=== PATIENT | female | born 1940 | race Caucasian/White ===

== ENCOUNTER → 2017-12-21 | Outpatient (CLI) | payer MEDICARE ==
[~2017-12-21] MED LIST: CALCIUM; CALCIUM PO; CHOL500050 PO; DENO60DI IM; LISI-170 PO; MAGNESIUM PO; MULT-516 PO; MULT-672 PO; POTA20TA89 PO; TAMO20TA PO
[2017-12-21 11:12] LABS: BASOPHILS # (AUTO) 0.02 x10^3/uL (0-0.1); BASOPHILS % (AUTO) 0 % (0-1); EOSINOPHILS # (AUTO) 0.15 x10^3/uL (0-0.4); EOSINOPHILS % (AUTO) 2 % (1-7); LYMPHOCYTES # (AUTO) 1.44 x10^3/uL (1-3.4); LYMPHOCYTES % (AUTO) 24 % (22-44); MD NO; MEAN CORPUSCULAR HEMOGLOBIN 27.1 pg (27.0-34.8); MEAN CORPUSCULAR HGB CONC 32.3 g/dL (32.4-35.8); MEAN CORPUSCULAR VOLUME 83.9 fL (80-100); MEAN PLATELET VOLUME 8.7 fL (7.4-10.4); MONOCYTES # (AUTO) 0.37 x10^3/uL (0.2-0.8); MONOCYTES % (AUTO) 6 % (2-9); NEUTROPHILS # (AUTO) 4.14 x10^3/uL (1.8-6.8); NEUTROPHILS % (AUTO) 68 % (42-75); PLATELET COUNT 153 x10^3/uL (130-400); RED BLOOD COUNT 4.87 x10^6/uL (3.82-5.3); RED CELL DISTRIBUTION WIDTH 14.6 % (9.6-15.2)
[2017-12-21 11:24] LABS: ANION GAP 8 mmol/L (5-15); CALCIUM 8.4 mg/dL (8.5-10.1); CHLORIDE 108 mmol/L (98-107)
[2017-12-21 11:25] LABS: CREATININE 0.95 mg/dL (0.55-1.02)
== END | disposition home or self-care (01) ==
LOC: STAR 10:18
PROVIDERS: ATTEND Internal Medicine Cardiovascular Disease
DX: Z01.818 Encounter for other preprocedural examination (principal); I10 Essential (primary) hypertension; I35.0 Nonrheumatic aortic (valve) stenosis
CPT/HCPCS: 36415; 80048; 85025

== ENCOUNTER 2017-12-27 11:10 | Day surgery (SDC) | payer MEDICARE ==
[~2017-12-27] VITALS: Ht 166.4 cm; Wt 75.0 kg
[2017-12-27] MEDS ORDERED: MIDAZOLAM 1 MG/ML, 2ML ONE (12:22)
[2017-12-27] MEDS ORDERED: VERAPAMIL 2.5 MG/ML, 2ML ONE (12:22)
[2017-12-27] MEDS ORDERED: LIDOCAINE-MPF 2%, 2ML ONE (12:22)
[2017-12-27] MEDS ORDERED: FENTANYL PF 100 MCG/2ML ONE (12:22)
[2017-12-27] MEDS ORDERED: HEPARIN 1,000 UNITS/ML, 10ML ONE (12:25)
[2017-12-27] MEDS ORDERED: BIVALIRUDIN 250 MG ONE (12:25)
[2017-12-27] MEDS ORDERED: TICAGRELOR 90 MG TABLET ONE (12:25)
[2017-12-27] MEDS ORDERED: SODIUM CHLORIDE 0.9% 1,000 ML IV SCH (13:24)
== END 2017-12-27 15:20 | disposition home or self-care (01) ==
LOC: CACL 11:10
PROVIDERS: ATTEND Internal Medicine Cardiovascular Disease
DX: I35.0 Nonrheumatic aortic (valve) stenosis (principal); I10 Essential (primary) hypertension; M10.9 Gout, unspecified; Z88.0 Allergy status to penicillin; Z87.39 Personal history of other diseases of the musculoskeletal system and connective tissue
CPT/HCPCS: 93454; 99156; C1769; C1894; J1644; J2250; J3010; Q9967; J0583; J3490

== ENCOUNTER → 2018-01-09 | Outpatient (CLI) | payer MEDICARE ==
[~2018-01-09] MED LIST changes: +ASPI-621 PO; +CLOP75TA PO; +METOPROLOL 1 MG/ML, 5ML ONE; +OMNIPAQUE 350 MG/ML, 150 ML BOTTLE ONE
== END | disposition home or self-care (01) ==
LOC: RAD 08:31
PROVIDERS: ATTEND Internal Medicine Cardiovascular Disease
DX: I77.810 Thoracic aortic ectasia (principal); I65.23 Occlusion and stenosis of bilateral carotid arteries; N85.4 Malposition of uterus; N85.2 Hypertrophy of uterus; I35.0 Nonrheumatic aortic (valve) stenosis; I10 Essential (primary) hypertension; Z90.49 Acquired absence of other specified parts of digestive tract; Z88.0 Allergy status to penicillin
CPT/HCPCS: 71275; 74174; 93880; 94010; 94726; 94729; Q9967

== ENCOUNTER 2018-01-16 06:03 | Inpatient (IN) | payer MEDICARE ==
[~2018-01-16] VITALS: Ht 165.1 cm; Wt 76.9 kg
[~2018-01-16 06:03] MED LIST changes: -ASPI-621 PO; -CLOP75TA PO; -METOPROLOL 1 MG/ML, 5ML ONE; -OMNIPAQUE 350 MG/ML, 150 ML BOTTLE ONE
[2018-01-16] MEDS ORDERED: SODIUM CHLORIDE 0.9% 1,000 ML IV ONE (06:16)
[2018-01-16 06:22] VITALS: BP 140/82
[2018-01-16] MEDS ORDERED: ONDANSETRON 2MG/ML, 2ML IVPush PRN (06:30)
[2018-01-16] MEDS: PLEASE ENTER HEIGHT AND WEIGHT MC SCH ×3 (06:30→22:30)
[2018-01-16] MEDS ORDERED: CHLORHEXIDINE 15 ML UDC MM PRN (06:30)
[2018-01-16 06:59] LABS: BASOPHILS # (AUTO) 0.02 x10^3/uL (0-0.1); BASOPHILS % (AUTO) 0 % (0-1); EOSINOPHILS # (AUTO) 0.26 x10^3/uL (0-0.4); EOSINOPHILS % (AUTO) 4 % (1-7); LYMPHOCYTES # (AUTO) 1.53 x10^3/uL (1-3.4); LYMPHOCYTES % (AUTO) 24 % (22-44); MD NO; MEAN CORPUSCULAR HEMOGLOBIN 26.6 pg (27.0-34.8); MEAN CORPUSCULAR HGB CONC 31.8 g/dL (32.4-35.8); MEAN CORPUSCULAR VOLUME 83.8 fL (80-100); MEAN PLATELET VOLUME 8.9 fL (7.4-10.4); MONOCYTES # (AUTO) 0.42 x10^3/uL (0.2-0.8); MONOCYTES % (AUTO) 7 % (2-9); NEUTROPHILS # (AUTO) 4.06 x10^3/uL (1.8-6.8); NEUTROPHILS % (AUTO) 65 % (42-75); PLATELET COUNT 151 x10^3/uL (130-400); RED BLOOD COUNT 4.86 x10^6/uL (3.82-5.3); RED CELL DISTRIBUTION WIDTH 14.4 % (9.6-15.2)
[2018-01-16] MEDS ORDERED: HEPARIN 1,000 UNITS/ML, 10ML ONE (07:00)
[2018-01-16] MEDS ORDERED: PROTAMINE SULFATE 10 MG/ML, 5ML ONE (07:00)
[2018-01-16] MEDS ORDERED: CEFAZOLIN 1,000 MG ONE (07:01)
[2018-01-16] MEDS ORDERED: FENTANYL PF 250 MCG/5ML ONE (07:05)
[2018-01-16 07:07] LABS: INTERNATIONAL NORMALIZED RATIO 0.97 (0.93-1.1)
[2018-01-16 07:09] LABS: ALANINE AMINOTRANSFERASE 28 U/L (12-78); ALBUMIN 3.6 g/dL (3.4-5.0); ANION GAP 7 mmol/L (5-15); CALCIUM 8.1 mg/dL (8.5-10.1); CHLORIDE 113 mmol/L (98-107)
[2018-01-16 07:12] LABS: ALKALINE PHOSPHATASE 60 U/L (45-117); BILIRUBIN,TOTAL 0.5 mg/dL (0.2-1.0); TOTAL PROTEIN 6.8 g/dL (6.4-8.2)
[2018-01-16] MEDS ORDERED: ONDANSETRON 2MG/ML, 2ML ONE (07:45)
[2018-01-16] MEDS ORDERED: SUCCINYLCHOLINE 20 MG/ML, 10ML ONE (07:45)
[2018-01-16] MEDS ORDERED: PHENYLEPHRINE 10 MG/ML ONE (07:45)
[2018-01-16] MEDS ORDERED: DEXAMETHASONE 4 MG/ML, 1ML ONE (08:48)
[2018-01-16] MEDS ORDERED: PROPOFOL 10 MG/ML, 20ML ONE (08:48)
[2018-01-16] MEDS ORDERED: ROCURONIUM 10MG/ML,5ML ONE (08:48)
[2018-01-16] MEDS: SODIUM CHLORIDE 0.9% 1,000 ML IV SCH ×2 (08:55→17:28)
[2018-01-16] MEDS ORDERED: hydrALAzine 20 MG/ML, 1ML IVPush PRN (09:00)
[2018-01-16] MEDS ORDERED: CLOPIDOGREL 300 MG TABLET PO ONE (09:00)
[2018-01-16] MEDS ORDERED: LABETALOL 20 MG/4 ML IVPush PRN (09:00)
[2018-01-16 17:05] VITALS: BP 124/80
[2018-01-16 20:13] VITALS: BP 107/69
[2018-01-17 00:15] VITALS: BP 103/67
[2018-01-17] MEDS: SODIUM CHLORIDE 0.9% 1,000 ML IV SCH (04:55)
[2018-01-17 06:11] LABS: BASOPHILS # (AUTO) 0.02 x10^3/uL (0-0.1); BASOPHILS % (AUTO) 0 % (0-1); EOSINOPHILS % (AUTO) 0 % (1-7); LYMPHOCYTES # (AUTO) 1.09 x10^3/uL (1-3.4); LYMPHOCYTES % (AUTO) 9 % (22-44); MD NO; MEAN CORPUSCULAR HGB CONC 32.4 g/dL (32.4-35.8); MEAN CORPUSCULAR VOLUME 83.6 fL (80-100); MONOCYTES # (AUTO) 0.61 x10^3/uL (0.2-0.8); MONOCYTES % (AUTO) 5 % (2-9); NEUTROPHILS # (AUTO) 9.93 x10^3/uL (1.8-6.8); NEUTROPHILS % (AUTO) 85 % (42-75); PLATELET COUNT 103 x10^3/uL (130-400); RED BLOOD COUNT 4.33 x10^6/uL (3.82-5.3); RED CELL DISTRIBUTION WIDTH 14.2 % (9.6-15.2)
[2018-01-17 06:16] LABS: CHLORIDE 115 mmol/L (98-107)
[2018-01-17 06:20] LABS: ANION GAP 10 mmol/L (5-15); CALCIUM 7.9 mg/dL (8.5-10.1)
[2018-01-17] MEDS: PLEASE ENTER HEIGHT AND WEIGHT MC SCH (06:30)
[2018-01-17 08:00] VITALS: BP 113/76
[2018-01-17] MEDS ORDERED: ASPI-621 PO (08:55)
[2018-01-17] MEDS ORDERED: LISI-170 PO (08:55)
[2018-01-17] MEDS ORDERED: CLOP75TA PO (08:55)
[2018-01-17] MEDS ORDERED: CLOPIDOGREL 75 MG TABLET PO SCH (09:00)
[2018-01-17] MEDS ORDERED: ASPIRIN 81 MG TABLET EC PO SCH (09:00)
== END 2018-01-17 12:46 | disposition home or self-care (01) | DRG 266 ==
LOC: ORIP 06:03 → CCU 08:59 → 5SO 16:47
PROVIDERS: ADMIT Internal Medicine Cardiovascular Disease; ATTEND Internal Medicine Cardiovascular Disease
PROC: 03HY32Z Insertion of Monitoring Device into Upper Artery, Percutaneous Approach (ICD-10-PCS; 2018-01-16)
PROC: 4A133B1 Monitoring of Arterial Pressure, Peripheral, Percutaneous Approach (ICD-10-PCS; 2018-01-16)
PROC: 4A133J1 Monitoring of Arterial Pulse, Peripheral, Percutaneous Approach (ICD-10-PCS; 2018-01-16)
PROC: B24BZZ4 Ultrasonography of Heart with Aorta, Transesophageal (ICD-10-PCS; 2018-01-16)
PROC: 02RF38Z Replacement of Aortic Valve with Zooplastic Tissue, Percutaneous Approach (ICD-10-PCS; principal; 2018-01-16 08:00)
DX: I35.0 Nonrheumatic aortic (valve) stenosis (principal); Z00.6 Encounter for examination for normal comparison and control in clinical research program; I50.33 Acute on chronic diastolic (congestive) heart failure; Z79.899 Other long term (current) drug therapy; M19.90 Unspecified osteoarthritis, unspecified site; M81.0 Age-related osteoporosis without current pathological fracture; E66.01 Morbid (severe) obesity due to excess calories; N18.2 Chronic kidney disease, stage 2 (mild); I12.9 Hypertensive chronic kidney disease with stage 1 through stage 4 chronic kidney disease, or unspecified chronic kidney disease; Z85.3 Personal history of malignant neoplasm of breast; Z88.6 Allergy status to analgesic agent; Z88.0 Allergy status to penicillin; Z68.28 Body mass index [BMI] 28.0-28.9, adult
CPT/HCPCS: 33361; 36415; 80048; 80053; 85025; 85347; 85610; 86850; 86900; 86923; 87081; 92986; 93005; 93308; 93312; 93321; 93325; 93355; C1760; C1769; C1894; G0378; J0690; J1100; J1644; J2405; J2704; J2720; J3010; J0330; J2370; Q9967

== ENCOUNTER → 2018-02-14 | Outpatient (CLI) | payer MEDICARE ==
[~2018-02-14] MED LIST changes: +ASPI-621 PO; +CLOP75TA PO
== END | disposition home or self-care (01) ==
LOC: CVU 15:35
PROVIDERS: ATTEND Internal Medicine Cardiovascular Disease
DX: Z48.812 Encounter for surgical aftercare following surgery on the circulatory system (principal); I34.8 Other nonrheumatic mitral valve disorders; I07.1 Rheumatic tricuspid insufficiency; I11.9 Hypertensive heart disease without heart failure; I35.0 Nonrheumatic aortic (valve) stenosis
CPT/HCPCS: 93306

== ENCOUNTER 2018-05-10 08:01 | Day surgery (SDC) | payer MEDICARE ==
[~2018-05-10] VITALS: Ht 162.6 cm; Wt 74.1 kg
[~2018-05-10 08:01] MED LIST changes: -ASPI-621 PO; +ASPI81TA45 PO
[2018-05-10 08:19] VITALS: BP 148/69
[2018-05-10] MEDS ORDERED: SODIUM CHLORIDE 0.9% 1,000 ML IV SCH (08:30)
[2018-05-10] MEDS ORDERED: PLEASE ENTER HEIGHT AND WEIGHT MC SCH (08:30)
[2018-05-10] MEDS ORDERED: LISI5TAB7 PO (08:31)
[2018-05-10] MEDS ORDERED: Tumeric PO (08:31)
[2018-05-10] MEDS ORDERED: PROPOFOL 10 MG/ML, 20ML ONE (08:41)
== END 2018-05-10 10:23 | disposition home or self-care (01) ==
LOC: CACL 08:01
PROVIDERS: ATTEND Internal Medicine Cardiovascular Disease
DX: I34.0 Nonrheumatic mitral (valve) insufficiency (principal); I35.0 Nonrheumatic aortic (valve) stenosis; I10 Essential (primary) hypertension; M19.90 Unspecified osteoarthritis, unspecified site; M10.9 Gout, unspecified; M81.0 Age-related osteoporosis without current pathological fracture; Z88.0 Allergy status to penicillin; Z88.8 Allergy status to other drugs, medicaments and biological substances; Z79.899 Other long term (current) drug therapy; Z98.890 Other specified postprocedural states
CPT/HCPCS: 93312; 93321; 93325; J2704

== ENCOUNTER 2019-06-21 12:54 | Inpatient (IN) | payer MEDICARE ==
[~2019-06-21] VITALS: Ht 167.6 cm; Wt 79.1 kg
[~2019-06-21 12:54] MED LIST changes: +LISI5TAB7 PO; +Tumeric PO
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
[2019-06-21] MEDS ORDERED: SODIUM CHLORIDE FLUSH 10ML SYR IVF ONE (13:30)
[2019-06-21] MEDS ORDERED: MORPHINE SULFATE 4 MG/ML, 1ML IVPush PRN (13:30)
--- NOTE | 2019-06-21 13:40 | NUR ---
MD IN TO ASSESS PATIENT. ORDERS TO BE PLACED.
[2019-06-21 13:48] LABS: BASOPHILS # (AUTO) 0.02 x10^3/uL (0-0.1); BASOPHILS % (AUTO) 0 % (0-1); EOSINOPHILS # (AUTO) 0.19 x10^3/uL (0-0.4); EOSINOPHILS % (AUTO) 3 % (1-7); LYMPHOCYTES % (AUTO) 17 % (22-44); MD NO; MEAN CORPUSCULAR HEMOGLOBIN 26.2 pg (27.0-34.8); MEAN CORPUSCULAR HGB CONC 31.5 g/dL (32.4-35.8); MEAN CORPUSCULAR VOLUME 83.4 fL (80-100); MEAN PLATELET VOLUME 9.6 fL (7.4-10.4); MONOCYTES # (AUTO) 0.28 x10^3/uL (0.2-0.8); MONOCYTES % (AUTO) 4 % (2-9); NEUTROPHILS # (AUTO) 4.87 x10^3/uL (1.8-6.8); NEUTROPHILS % (AUTO) 75 % (42-75); PLATELET COUNT 132 x10^3/uL (130-400); RED CELL DISTRIBUTION WIDTH 15.3 % (9.6-15.2)
[2019-06-21 13:49] LABS: PROTHROMBIN TIME 10.6 Seconds (9.6-11.5)
--- NOTE | 2019-06-21 13:50 | NUR ---
PT PREPPED FOR VICTORIA CATHETER PLACEMENT USING STERILE TECHNIQUE. TECHS AT BEDSIDE TO HELP HOLD LEGS PATIENT CAN NOT MOVE RIGHT LEG. VICTORIA INSERTED WITH ONE ATTEMPT FOLLOWING STERILE TECHNIQUE PROTOCOL. BAG LABELED. UA COLLECTED, BAG PLACED BELOW BLADDER LEVEL, STAT LOCK APPLIED TO LEFT THIGH. PT EDUCATED ON VICTORIA CATH USE AND HOW IT IS INSERTED. FAMILY REMAINS AT BEDSIDE. RN INFORMS PATIENT AND ALL FAMILY MEMBERS, THAT DUE TO THE COVID 19, ONLY ONE VISITOR WILL BE ALLOWED TO STAY. DAUGHTERS AND GRANDDAUGHTERS ALL LEAVE, REMAINS WITH PATIENT.
[2019-06-21 13:51] LABS: ALBUMIN 3.1 g/dL (3.4-5.0); ANION GAP 5 mmol/L (5-15); CHLORIDE 117 mmol/L (98-107); CREATININE 1.07 mg/dL (0.55-1.02)
[2019-06-21] MEDS ORDERED: MORPHINE SULFATE 4 MG/ML, 1ML ONE ×2 (13:55→15:04)
--- NOTE | 2019-06-21 14:00 | NUR ---
IV PAIN MEDICATION GIVEN TO PATIENT FOR RELIEF DURING THE XRAY PROCEDURE. PT TOLERATED ADMINISTRATION OF MORPHINE, AND DRIFTS TO SLEEP.
--- NOTE | 2019-06-21 14:04 | NUR ---
PT TO XRAY PER JESSIE.
[2019-06-21 14:15] LABS: MICROSCOPIC AUTO
[2019-06-21 14:16] LABS: CULTURE INDICATED? YES
--- NOTE | 2019-06-21 15:01 | NUR ---
PT RETURNED FROM XRAY. PLACED BACK ON MONITOR. PT C/O HIP PAIN. WILL TREAT WITH PAIN MEDCIATIONS.
[2019-06-21] MEDS ORDERED: DIAZEPAM 5 MG/ML, 2ML IVPush ONE (15:30)
[2019-06-21] MEDS ORDERED: DIAZEPAM 5 MG/ML, 2ML ONE (15:37)
[2019-06-21] MEDS ORDERED: ONDANSETRON ODT 4 MG PO PRN (16:00)
[2019-06-21] MEDS ORDERED: hydrALAzine 20 MG/ML, 1ML IVPush PRN (16:00)
[2019-06-21] MEDS ORDERED: ONDANSETRON 2MG/ML, 2ML IVPush PRN (16:00)
[2019-06-21] MEDS ORDERED: GABAPENTIN 300 MG CAPSULE PO PRN (16:00)
[2019-06-21] MEDS ORDERED: IBUPROFEN 600 MG TABLET PO PRN (16:00)
[2019-06-21] MEDS ORDERED: ACETAMINOPHEN 325 MG TABLET PO PRN (16:00)
[2019-06-21] MEDS ORDERED: CYCLOBENZAPRINE 10 MG TABLET ONE (16:37)
[2019-06-21] MEDS: CYCLOBENZAPRINE 10 MG TABLET PO PRN (16:39)
--- NOTE | 2019-06-21 16:47 | NUR ---
PT C/O PAIN AND MUSCLE SPASMS. RN ADMINISTERS MORPHINE, VALIUM AND THEN AFTER A WHILE FLEXERIL. PT CONTINUES TO LAY ON BED WITH AT BEDSIDE. WILL CONTINUE TO MONITOR FOR INCREASED PAIN.
--- NOTE | 2019-06-21 17:30 | NUR ---
AND PATIENT INFORM RN THAT FLEXERIL PILL WORKED WELL. VERY CONCERNED THAT HE WILL NOT GET TO TALK TO THE DOCTOR PRIOR TO SURGERY. RN INFORMS PATIENT AND FAMILY I DO NOT HAVE ANY OF THAT INFORMATION.
--- NOTE | 2019-06-21 18:24 | NUR ---
REPORT TO OR NURSE AND KIKA RN FOR ROOM 457. PATIENT AND INFORMED OF PLAN TO GO TO OR [facility] REPORT TO RELIEF RN TO BE ON THE LOOKOUT FOR OR.
[2019-06-21] MEDS ORDERED: FENTANYL PF 250 MCG/5ML ONE (18:27)
[2019-06-21] MEDS ORDERED: MIDAZOLAM 1 MG/ML, 2ML ONE (18:36)
[2019-06-21] MEDS ORDERED: DEXAMETHASONE 4 MG/ML, 1ML ONE (18:54)
[2019-06-21] MEDS ORDERED: EPHEDRINE 50 MG/ML, 1ML ONE (18:55)
[2019-06-21] MEDS ORDERED: CEFAZOLIN 1,000 MG ONE (18:55)
[2019-06-21] MEDS ORDERED: ONDANSETRON 2MG/ML, 2ML ONE (19:08)
[2019-06-21] MEDS ORDERED: PROPOFOL 10 MG/ML, 20ML ONE (19:08)
[2019-06-21] MEDS ORDERED: OXYcodone 5 MG/5 ML ORAL.SOL UDC PO PRN (19:30)
[2019-06-21] MEDS ORDERED: HYDROmorphone 2 MG/ML, 1ML IVPush PRN (19:30)
[2019-06-21] MEDS ORDERED: hydrALAzine 20 MG/ML, 1ML IV PRN (19:30)
[2019-06-21] MEDS ORDERED: PROMETHAZINE 25 MG/ML, 1ML IV PRN (19:30)
[2019-06-21] MEDS ORDERED: FENTANYL PF 100 MCG/2ML IV PRN (19:30)
[2019-06-21] MEDS ORDERED: ONDANSETRON 2MG/ML, 2ML IV PRN (19:30)
[2019-06-21] MEDS ORDERED: LABETALOL 5MG/ML, 20ML IV PRN (19:30)
[2019-06-21] MEDS ORDERED: DIAZEPAM 5 MG/ML, 2ML IVPush PRN (19:30)
[2019-06-21] MEDS ORDERED: OXYcodone 5 MG/5 ML ORAL.SOL UDC ONE (19:50)
[2019-06-21] MEDS ORDERED: FENTANYL PF 100 MCG/2ML ONE (19:50)
[2019-06-21 20:30] VITALS: BP 116/76
[2019-06-21 20:31] VITALS: BP 103/71
[2019-06-21] MEDS: D5%-0.45NACL+KCL 20MEQ 1,000 ML IV SCH (21:15)
[2019-06-22 00:01] VITALS: BP 105/70
[2019-06-22] MEDS ORDERED: SODIUM CHLORIDE 0.9%, 500ML IVBOLUS ONE (01:00)
[2019-06-22] MEDS: KETOROLAC 30 MG/1 ML IV PRN (01:15)
[2019-06-22] MEDS: CEFAZOLIN PMX 1GM/50ML 50 ML IV SCH ×2 (03:01→13:24)
[2019-06-22 03:42] VITALS: BP 147/68
[2019-06-22] MEDS ORDERED: ALBUMIN HUMAN 5% 500 ML IV ONE (04:00)
[2019-06-22 05:43] LABS: BASOPHILS # (AUTO) 0.01 x10^3/uL (0-0.1); BASOPHILS % (AUTO) 0 % (0-1); EOSINOPHILS # (AUTO) 0.01 x10^3/uL (0-0.4); EOSINOPHILS % (AUTO) 0 % (1-7); LYMPHOCYTES # (AUTO) 0.67 x10^3/uL (1-3.4); LYMPHOCYTES % (AUTO) 6 % (22-44); MD NO; MEAN CORPUSCULAR HEMOGLOBIN 26.3 pg (27.0-34.8); MEAN CORPUSCULAR HGB CONC 31.7 g/dL (32.4-35.8); MEAN CORPUSCULAR VOLUME 83.2 fL (80-100); MEAN PLATELET VOLUME 9.8 fL (7.4-10.4); MONOCYTES # (AUTO) 0.51 x10^3/uL (0.2-0.8); MONOCYTES % (AUTO) 5 % (2-9); NEUTROPHILS # (AUTO) 9.26 x10^3/uL (1.8-6.8); NEUTROPHILS % (AUTO) 89 % (42-75); PLATELET COUNT 131 x10^3/uL (130-400); RED BLOOD COUNT 3.53 x10^6/uL (3.82-5.3)
[2019-06-22 05:48] LABS: ANION GAP 6 mmol/L (5-15); CALCIUM 7.2 mg/dL (8.5-10.1); CHLORIDE 116 mmol/L (98-107); CREATININE 1.07 mg/dL (0.55-1.02)
[2019-06-22 07:06] VITALS: BP 94/63
[2019-06-22] MEDS: ASPIRIN 81 MG TABLET EC PO SCH (08:58)
[2019-06-22] MEDS: MULTIVITAMIN 1 TABLET PO SCH (08:58)
[2019-06-22 14:03] VITALS: BP 91/52
[2019-06-22] MEDS: ENOXAPARIN 40 MG/0.4 ML SQ SCH (16:33)
[2019-06-22] MEDS: OXYcodone IR 5MG TABLET PO PRN (18:36)
[2019-06-22 19:34] VITALS: BP 87/45
[2019-06-23 01:46] VITALS: BP 101/46
[2019-06-23] MEDS: D5%-0.45NACL+KCL 20MEQ 1,000 ML IV SCH ×2 (04:34→23:00)
[2019-06-23] MEDS: OXYcodone IR 5MG TABLET PO PRN ×4 (04:37→16:24)
[2019-06-23] MEDS: morphine SULFATE 10 MG/ML, 1ML IVPush PRN ×2 (04:49→08:45)
[2019-06-23 05:31] LABS: CHLORIDE 114 mmol/L (98-107)
[2019-06-23 05:38] LABS: ANION GAP 5 mmol/L (5-15); CALCIUM 7.1 mg/dL (8.5-10.1); CREATININE 1.05 mg/dL (0.55-1.02)
[2019-06-23 05:44] LABS: MEAN CORPUSCULAR HEMOGLOBIN 26.4 pg (27.0-34.8); MEAN CORPUSCULAR HGB CONC 31.7 g/dL (32.4-35.8); MEAN CORPUSCULAR VOLUME 83.4 fL (80-100); MEAN PLATELET VOLUME 9.7 fL (7.4-10.4); PLATELET COUNT 97 x10^3/uL (130-400); RED BLOOD COUNT 2.91 x10^6/uL (3.82-5.3); RED CELL DISTRIBUTION WIDTH 15.7 % (9.6-15.2)
[2019-06-23 06:23] LABS: BASOPHILS # (AUTO) 0.02 x10^3/uL (0-0.1); BASOPHILS % (AUTO) 0 % (0-1); EOSINOPHILS # (AUTO) 0.05 x10^3/uL (0-0.4); EOSINOPHILS % (AUTO) 1 % (1-7); LYMPHOCYTES # (AUTO) 1.22 x10^3/uL (1-3.4); LYMPHOCYTES % (AUTO) 17 % (22-44); MD SCAN; MONOCYTES % (AUTO) 8 % (2-9); NEUTROPHILS # (AUTO) 5.27 x10^3/uL (1.8-6.8); NEUTROPHILS % (AUTO) 74 % (42-75)
[2019-06-23 07:05] VITALS: BP 100/64
[2019-06-23] MEDS: ASPIRIN 81 MG TABLET EC PO SCH (08:45)
[2019-06-23] MEDS: MULTIVITAMIN 1 TABLET PO SCH (08:45)
[2019-06-23] MEDS: KETOROLAC 30 MG/1 ML IV PRN (11:19)
[2019-06-23 13:26] VITALS: BP 87/56
[2019-06-23] MEDS ORDERED: TEMPLATE NON-FORMULARY MED. (Denosumab (Prolia) 60 MG) SQ SCH (15:00)
[2019-06-23] MEDS: ERGOCALCIFEROL 50,000 UNIT CAPSULE PO SCH (16:21)
[2019-06-23] MEDS: CALCIUM/VITAMIN D3 250-125 TABLET PO SCH (16:22)
[2019-06-23] MEDS: CYCLOBENZAPRINE 10 MG TABLET PO PRN (16:23)
[2019-06-23] MEDS: ENOXAPARIN 40 MG/0.4 ML SQ SCH (16:24)
[2019-06-23 20:09] VITALS: BP 96/64
[2019-06-24] MEDS: OXYcodone IR 5MG TABLET PO PRN ×3 (02:07→15:44)
[2019-06-24] MEDS: KETOROLAC 30 MG/1 ML IV PRN (02:07)
[2019-06-24 02:15] VITALS: BP 113/73
[2019-06-24 05:09] LABS: MEAN CORPUSCULAR HEMOGLOBIN 26.4 pg (27.0-34.8); MEAN CORPUSCULAR HGB CONC 31.6 g/dL (32.4-35.8); MEAN CORPUSCULAR VOLUME 83.6 fL (80-100); RED BLOOD COUNT 2.75 x10^6/uL (3.82-5.3); RED CELL DISTRIBUTION WIDTH 15.4 % (9.6-15.2)
[2019-06-24 05:22] LABS: CHLORIDE 114 mmol/L (98-107)
[2019-06-24 05:27] LABS: ANION GAP 5 mmol/L (5-15); CALCIUM 6.8 mg/dL (8.5-10.1)
[2019-06-24 05:57] LABS: BASOPHILS # (AUTO) 0.02 x10^3/uL (0-0.1); BASOPHILS % (AUTO) 0 % (0-1); EOSINOPHILS # (AUTO) 0.06 x10^3/uL (0-0.4); EOSINOPHILS % (AUTO) 1 % (1-7); LYMPHOCYTES # (AUTO) 1.01 x10^3/uL (1-3.4); LYMPHOCYTES % (AUTO) 18 % (22-44); MD SCAN; MONOCYTES # (AUTO) 0.46 x10^3/uL (0.2-0.8); MONOCYTES % (AUTO) 8 % (2-9); NEUTROPHILS # (AUTO) 4.14 x10^3/uL (1.8-6.8); NEUTROPHILS % (AUTO) 73 % (42-75); PLATELET COUNT 87 x10^3/uL (130-400)
[2019-06-24 07:15] VITALS: BP 115/61
[2019-06-24] MEDS ORDERED: POTASSIUM CHLORIDE 20 MEQ TAB.ER.PRT PO SCH (08:00)
[2019-06-24] MEDS: CALCIUM/VITAMIN D3 250-125 TABLET PO SCH (08:01)
[2019-06-24] MEDS: ASPIRIN 81 MG TABLET EC PO SCH (08:01)
[2019-06-24] MEDS: ERGOCALCIFEROL 50,000 UNIT CAPSULE PO SCH (08:01)
[2019-06-24] MEDS: D5%-0.45NACL+KCL 20MEQ 1,000 ML IV SCH (08:01)
[2019-06-24] MEDS: MULTIVITAMIN 1 TABLET PO SCH (08:02)
[2019-06-24] MEDS ORDERED: MAGNESIUM OXIDE 400 MG TABLET PO SCH (09:00)
[2019-06-24] MEDS ORDERED: MULTIVITAMINS/MINERALS TABLET PO SCH (09:00)
[2019-06-24] MEDS ORDERED: LISINOPRIL 5 MG TABLET PO SCH ×2 (09:00→21:00)
[2019-06-24] MEDS ORDERED: TUMERIC PO SCH (09:00)
[2019-06-24] MEDS ORDERED: CLOPIDOGREL 75 MG TABLET PO SCH (09:00)
[2019-06-24] MEDS ORDERED: LACTULOSE 20 GM/30 ML UDC PO PRN (11:00)
[2019-06-24] MEDS ORDERED: MAGNESIUM CITRATE 300ML ORAL SOL PO PRN ×2 (11:00)
[2019-06-24] MEDS ORDERED: POLYETHYLENE GLYCOL 17 GM PACKET PO PRN (11:00)
[2019-06-24] MEDS ORDERED: BISACODYL 10 MG SUPP PR PRN (11:00)
[2019-06-24 12:52] VITALS: BP 102/71
[2019-06-24] MEDS ORDERED: ENOX40SY4 SQ (13:48)
[2019-06-24] MEDS ORDERED: OXYC5TAB3 PO (13:50)
[2019-06-24] MEDS ORDERED: LEVO500T47 PO (14:04)
[2019-06-24] MEDS: ENOXAPARIN 40 MG/0.4 ML SQ SCH (16:33)
[2019-06-24 16:35] VITALS: BP 138/75
[2019-06-24] MEDS ORDERED: SENNA/DOCUSATE TABLET PO SCH (21:00)
== END 2019-06-24 16:55 | DRG 481 ==
LOC: ED 15:10 → EDIP 15:11 → ED 15:20 → SUATTDRO 15:51 → 4NE 20:26
PROVIDERS: ADMIT Hospitalist; ATTEND Hospitalist
PROC: 0QS606Z Reposition Right Upper Femur with Intramedullary Internal Fixation Device, Open Approach (ICD-10-PCS; principal; 2019-06-21 16:30)
DX: S72.141A Displaced intertrochanteric fracture of right femur, initial encounter for closed fracture (principal); E87.2 Acidosis; N39.0 Urinary tract infection, site not specified; B96.20 Unspecified Escherichia coli [E. coli] as the cause of diseases classified elsewhere; D64.9 Anemia, unspecified; E83.51 Hypocalcemia; I10 Essential (primary) hypertension; I35.0 Nonrheumatic aortic (valve) stenosis; M19.90 Unspecified osteoarthritis, unspecified site; E66.9 Obesity, unspecified; W01.0XXA Fall on same level from slipping, tripping and stumbling without subsequent striking against object, initial encounter; Z79.82 Long term (current) use of aspirin; Z82.3 Family history of stroke; Z85.3 Personal history of malignant neoplasm of breast; Z87.442 Personal history of urinary calculi; Z95.2 Presence of prosthetic heart valve; Z98.84 Bariatric surgery status; Z88.0 Allergy status to penicillin; Z79.899 Other long term (current) drug therapy; Y93.89 Activity, other specified; Y92.89 Other specified places as the place of occurrence of the external cause; Y99.8 Other external cause status; Z68.28 Body mass index [BMI] 28.0-28.9, adult
CPT/HCPCS: 36415; 51702; 71045; 76000; 80048; 81001; 82040; 85025; 85610; 86850; 86900; 87077; 87086; 87186; 93005; 99285; C1713; G0378; J0690; J1100; J1650; J1885; J2250; J2405; J2704; J3010; P9045; J2270; J3480; J7040

== ENCOUNTER → 2020-01-16 | Outpatient (CLI) | payer MEDICARE ==
[~2020-01-16] MED LIST changes: +ENOX40SY4 SQ; +LEVO500T47 PO; +OXYC5TAB3 PO
== END | disposition home or self-care (01) ==
LOC: CFH 14:46
PROVIDERS: ATTEND Internal Medicine Cardiovascular Disease
DX: I08.1 Rheumatic disorders of both mitral and tricuspid valves (principal); I11.9 Hypertensive heart disease without heart failure
CPT/HCPCS: 93306